=== PATIENT | female | born 2000 ===

== ENCOUNTER 2024-04-27 15:06 | Emergency (ER) | payer MEDICAID ==
[~2024-04-27] VITALS: Ht 160 cm; Wt 48.2 kg
[2024-04-27 15:27] VITALS: BP 104/59; PULSE 102; RESP 18; TEMP 98.9; O2SAT 99
[2024-04-27 15:52] LABS: COVID AG,FIA SOURCE NASAL SWAB
[2024-04-27 16:13] LABS: BASOPHILS % (AUTO) 0.1 % (0.0-2.0); EOSINOPHILS % (AUTO) 0 % (1.0-6.0); HEMATOCRIT 35.9 % (36-46); LYMPHOCYTES # (AUTO) 1.1 K/uL (1.0-4.8); LYMPHOCYTES % (AUTO) 16.3 % (22.0-44.0); MEAN CORPUSCULAR HEMOGLOBIN 27.5 pg (26.0-34.0); MEAN CORPUSCULAR HGB CONC 33.3 G/dL (31.0-37.0); MEAN CORPUSCULAR VOLUME 83 fL (80-100); MONOCYTES # (AUTO) 0.3 K/uL (0.1-1.0); MONOCYTES % (AUTO) 4.7 % (2.0-9.0); NEUTROPHILS # (AUTO) 5.3 K/uL (1.8-7.7); NEUTROPHILS % (AUTO) 78.9 % (40.0-70.0); PLATELET COUNT (AUTO) 252 K/uL (150-450); RED BLOOD CELL COUNT(AUTO) 4.34 MIL/uL (4.00-5.20); WHITE BLOOD COUNT (AUTO) 6.7 K/uL (4.5-11.0)
[2024-04-27 16:23] LABS: ANION GAP 12 mmol/L (8-16); CALCIUM, TOTAL 8.6 mg/dL (8.8-10.5); CARBON DIOXIDE 26 mmol/L (22-29); CHLORIDE 98 mmol/L (98-107); CREATININE 0.81 mg/dL (0.60-1.30); GLOMERULAR FILTR. RATE CALC > 60 mL/min (>60); GLUCOSE,RANDOM 74 mg/dL (70-110); POTASSIUM 4.1 mmol/L (3.5-5.1); SODIUM SERUM 136 mmol/L (136-145); UREA NITROGEN, BLOOD 12 mg/dL (7-18)
[2024-04-27 16:49] LABS: SARS-COV2 (COVID) ANTIGEN,FIA Negative (Negative)
[2024-04-27 16:52] LABS: INFLUENZA TYPE A POSITIVE FOR TYPE A (NEGATIVE); INFLUENZA TYPE B NEGATIVE FOR TYPE B (NEGATIVE)
[2024-04-27] MEDS ORDERED: ACET-3385 PO (20:09)
[2024-04-27] MEDS ORDERED: IBUP-1506 PO (20:09)
[2024-04-27] MEDS ORDERED: AMOX-457 PO (20:09)
[2024-04-27] MEDS: AMOX TR/POT CLAV 875 MG/125 MG TABLET PO ONE (20:26)
[2024-04-27] MEDS: ACETAMINOPHEN 325 MG TABLET PO ONE (20:26)
== END 2024-04-27 20:31 | disposition home or self-care (01) ==
LOC: EMS 15:06
DX: H66.91 Otitis media, unspecified, right ear (principal); J11.83 Influenza due to unidentified influenza virus with otitis media; F42.9 Obsessive-compulsive disorder, unspecified; F41.9 Anxiety disorder, unspecified; F32.A Depression, unspecified; Z90.89 Acquired absence of other organs; Z20.822 Contact with and (suspected) exposure to COVID-19
CPT/HCPCS: 80048; 84703; 85025; 87804; 99283